=== PATIENT | male | born 1940 | race Caucasian/White ===

== ENCOUNTER 2023-04-15 06:13 | Day surgery (SDC) | payer MEDICARE, SELFPAY ==
[2023-04-14 08:37] VITALS: BMI 26.5
[2023-04-15] VITALS (12 sets, daily range): BP systolic 105–150; BP diastolic 69–84; PULSE 49–68; RESP 14–18; TEMP 36.1–37; O2SAT 93–99; BMI 26.6
--- NOTE | 2023-04-15 | PATH_ITS ---
[facility] Accession Number: [id number] No. of containers..01 Tissue . 01 Material submitted: . femur - RIGHT FEMUR SCLEROTIC TISSUE . 01 Diagnosis: BONE, RIGHT FEMUR, BIOPSY: Fragments of bony trabeculae with marrow elements, fibroadipose tissue, and sclerosed vascular tissue. Negative for malignancy. MRV 04/17/2023 1725 Local . 01 Electronically signed: . Celestina Landon MD, Pathologist NPI- [id number] . 01 Gross description: . The specimen is received in formalin labeled with the patient's name, , and right femur sclerotic tissue, consists of multiple fragments of cabrera-brown trabecular osseous tissue and blood clots aggregating to 2.6 x 2.0 x 0.4 cm. The tissue is entirely submitted in cassette A1 following decalcification in Immunocal. ([id number]) /MRV 04/16/2023 1220 Local . 01 Pathologist provided ICD-10: M16.11 . 01 CPT . 076358 Specimen Comment: A courtesy copy of this report has been sent to [phone] Performed at: 01 [facility] [address] [place] [address] [address], [place], [place] [id number] MD Geremias Meadows MD Phone: [phone]
--- NOTE | 2023-04-15 06:00 | DI.RAD.S_ITS ---
PROCEDURE: XR HIP W PEL IF DONE RT 2V INDICATIONS: JOSE TECHNIQUE: 4 intraoperative fluoroscopic images COMPARISON: None. FINDINGS: Four intraoperative fluoroscopic images demonstrate right total hip arthroplasty. Please see operative report for details. IMPRESSION: Four intraoperative fluoroscopic images demonstrate right total hip arthroplasty. Please see operative report for details. Dictated by: Samantha Vicente M.D. on 04/15/2023 at 18:19 Approved by: Samantha Vicente M.D. on 04/15/2023 at 18:20
[2023-04-15] MEDS: VANCOMYCIN 1,000 MG/200 ML PIGGYBACK 200 MG IV (06:49)
[2023-04-15] MEDS: ACETAMINOPHEN 325 MG TABLET 975 MG PO (07:07)
[2023-04-15] MEDS: LACTATED RINGERS 1,000 ML 42 ML IV ×2 (07:07→10:31)
[2023-04-15] MEDS: CELECOXIB 200 MG CAPSULE PO (07:07)
[2023-04-15] MEDS: PREGABALIN 75 MG CAPSULE PO (07:07)
[2023-04-15] MEDS: ONDANSETRON 4 MG/2 ML INJ IV (07:11)
[2023-04-15] MEDS: FAMOTIDINE 20 MG/2 ML VIAL IV (07:11)
--- NOTE | 2023-04-15 07:31 | P.OP_ITS ---
Operative Date/Time/Diagnoses Date of procedure: 04/15/23 Time of procedure: 07:55 Pre-op diagnosis: right hip OA, right hip sclerotic lesion Post-op diagnosis: same Procedure & Clinicians Procedure: Right total hip arthroplasty anterior approach, right femoral intramedullary open bone biopsy Same procedure as scheduled: Yes Indications: The patient has had progressively worsening right hip pain with radiographic changes consistent with arthritis. Non-operative management has failed and the patient has requested total hip replacement. He has a sclerotic lesion noted in his right proximal femur in the intramedullary canal that will be biopsied at the time of surgery. Clinically and radiographically it has a fairly benign appearance. The risks, benefits and alternatives to surgery were discussed with the patient prior to proceeding. Risks discussed included, but were not limited to, failure to relieve pain, leg length discrepancy, dislocation, stiffness, infection, nerve damage, deep venous thrombosis, pulmonary embolism, stroke, coma, heart attack, permanent paralysis and , as well as the potential need for eventual revision of the prosthetic. Surgeon: Kady Whitten Admissions Officer: Christophe Tse Anesthesia Type: General and Spinal Operative Notes Findings: Severe right hip OA, adequate stability, fairly soft bony intramedullary canal components suggestive of benign tissue Closure Type: primary Specimen(s): none sent Prosthetic devices, grafts, tissues, transplants, or devices: Whitten and nephew size 62 R3 cup, neutral poly liner, size 6 polar lateral stem with collar, 40 x +0 cobalt chrome head,one 6.5 mm screw. Blood products transfused: none Procedure in detail: The patient was brought to the operating room. Patient was carefully positioned in the supine position. Time-out was performed and antibiotics were given. Anesthesia was induced. He was positioned in the on the table in order to allow hyperextension of the hip. The right lower extremity was prepped and draped in a standard sterile fashion. An anterior right hip incision was made 1 fingerbreadth lateral to the anterior superior iliac spine and extended distally towards the greater trochanter. Dissection was carried out through skin and subcutaneous tissues. Superficial hemostasis was achieved. The fascia over the tensor fascia sunil was defined and incised with a knife. Two Allis clamps were used to grasp the fascia. Tensor fascia sunil was retracted laterally. A gelpi retractor was placed. Dissection was carried out down along the neck. The circumflex vessels were carefully identified and cauterized with the Aqua Mantis. A PA was used during the procedure was essential for intraoperative retraction and safe implantation of the components. There was good visualization of the femoral neck. A Cobra was placed superior to the neck and the gluteus fibers were carefully stripped from that superior aspect of the capsule. A 2nd retractor was placed along the inferior aspect of the neck. The rectus insertion along the capsule was partially released. A 3rd retractor that was then gently placed over the rim of the acetabulum under the rectus. Capsule was carefully incised and released from the intertrochanteric line circumferentially superior to the mid sagittal line and inferiorly to the mid sagittal line until the lesser trochanter was palpable. A tag stitch was placed both in the superior and inferior limb of the capsular insertion. Along the acetabulum capsule was also released up to the mid sagittal 12:00 position. A portion of the labrum was resected. A saw was used to perform an osteotomy at the level of the intertrochanteric line and the junction of the superior femoral neck leaving approximately 1 finger breath of residual inferior neck above the lesser trochanter. A 2nd cut was made along the femoral neck at the base of the head and a napkin ring of neck was removed. Corkscrew was placed in the femoral head and the head was removed without difficulty. Retractors were then repositioned around the acetabulum. Residual labrum was resected and additional osteophytes were removed. A reamer that was 4 mm below the templated size was placed by hand in the acetabulum and it was reamed to centralize the acetabulum. It was then reamed up to 2 under the templated size and fluoroscopy was brought in to confirm the position of the reaming and depth of reaming. I reamed 1 under the anticipated size. A trial cup was placed and noted that it was appropriately sized and fluoroscopy confirmed position and depth. The component was open and inserted without difficulty fluoroscopic imaging was used to confirm that the cup had been adequately seated and was well positioned. It was further stabilized with a single screw. Neutral poly liner was placed. The cup was tested and noted to be stable. Attention was then directed to the femur. The femur was gently hyperextended additional capsular release was performed as needed in order to allow adequate visualization of the proximal femur with elevation of the femur. Patient was placed in a hyperextended slightly adducted position with maximum external rotation. Box osteotome was used to check for any residual neck as well as sclerotic bone along the trochanter. The fluoro was then brought in in preparation for a deep bone biopsy. A Cloward rongeur was used to reach down into the intramedullary region of the canal and remove a specimen. Fluoro confirmed that we are in the region of interest where there was a sclerotic lesion on his femur. I also used a revision osteotomes back lift manager to scrape additional bone and it was sent for pathology. Anderson pepper was placed in the femur. Additional broaching was performed. Canal finder was used to determine the alignment of the canal and position. Size 1 broach was placed. The canal was then appropriately broached up to the templated size as long as there was adequate stability of the broach and serial advancement of the broach without excessive impingement. Specific attention was directed at avoiding varus attempting to direct the distal aspect of the broach more anteriorly and avoiding excessive anteversion. Trial reduction showed acceptable range of mot ion, good stability, no posterior impingement, jehovah's witness of leg length and appropriate lateral shuck. I also hyperflexed the hip and checked that there was no impingement anteriorly and there was good stability with flexion, adduction and internal rotation. Marcaine and Exparel were injected. The stem was placed without difficulty. Repeat trial reduction and x-ray showed acceptable overall position, length, and no evidence of the femoral fracture. Final head was placed. Wound was meticulously irrigated with normal saline. The hip was reduced and additional Exparel and Marcaine were injected. The capsule was closed with interrupted nonabsorbable sutures. The fascia of the tensor was closed with interrupted and running Vicryl. No drain was placed. Any tensor fascia sunil muscle that appeared to be contused or injured which was a minimal amount was carefully resected. Capsule around the tensor was injected with Exparel and Marcaine. The skin was closed with barbed stitches for the subcutaneous tissue and skin. We also used surgical glue. The wound was dressed sterilely. Brief Betadine soak was also used and was meticulously irrigated with normal saline. Patient was transferred to recovery room in satisfactory condition. Complications: none Post-operative Condition: stable Disposition: Acute Care Plan for aftercare: The patient will be maintained on a standard total hip replacement protocol with weight bearing as tolerated and anterior hip precautions. The patient will receive Aspirin and sequential compression devices for DVT prophylaxis. The patient will be discharged home when safe for the home environment.
--- NOTE | 2023-04-15 07:32 | PM.PREOP ---
Pre-operative Note Interval Note History & Physical reviewed/Exam performed by Physician: Yes Changes to H&P: No
[2023-04-15] MEDS: CEFAZOLIN 2 GM/100 ML PREMIX 100 ML IV ×2 (07:50→17:17)
--- NOTE | 2023-04-15 08:26 | SUR.OPER ---
Supine on padded [place] table with bilateral legs secured in padded positioning boots and suspended in positioning spars, operative leg in traction per surgeon. Head on one pillow. Arm on non-operative side secured on padded armboard <90 degrees abduction. Arm on operative side padded and resting across chest then secured with tape over sheet. Padded perineal post in place per surgeon.
[2023-04-15] MEDS: BUPIVACAINE LIPOSOME 266 MG/20 ML VIAL INJ (08:32)
[2023-04-15] MEDS: TRANEXAMIC ACID 1,000 MG VIAL 1000 MG INJ (08:32)
[2023-04-15] MEDS: BUPIVACAINE 0.25% (PF) 60 ML, EPINEPHrine 0.3 MG INJ (08:33)
--- NOTE | 2023-04-15 11:00 | DI.RAD.S_ITS ---
PROCEDURE: XR HIP W PEL IF DONE RT 2V INDICATIONS: POST OP ANTERIOR HIP TECHNIQUE: AP pelvis and lateral view of the hip acquired. 3 images. COMPARISON: [facility], [facility], XR HIP W PEL IF DONE RT 2V, 04/15/2023, 9:06. FINDINGS: Bones: Patient is status post right hip arthroplasty, with hardware components in expected positions. The hip joint appears congruent. The visualized bony structures appear intact. Soft tissues: Overlying postoperative changes are noted. No suspicious soft tissue densities. IMPRESSION: Expected appearance of the right total hip arthroplasty. Dictated by: Angel Geller M.D. on 04/15/2023 at 12:32 Approved by: Angel Geller M.D. on 04/15/2023 at 12:33
--- NOTE | 2023-04-15 11:59 | PC.NURSE ---
Addendum entered by Jeannette Salazar R.N. 04/15/23 13:48: Patient had some ibuprofen and tylenol, he is comfortable and visiting with his . Original Note: Patient to room at 1105, he has an aquacel dressing to his r.upper anterior hip, cdi. He denies pain and had local with experel. Patient received 100mcg of fentanyl, 2 versed, 4 zofran and 10mg of decadron. He is resting comfortably now.
[2023-04-15] MEDS: IBUPROFEN 400 MG TABLET PO ×2 (12:53→18:43)
[2023-04-15] MEDS: ACETAMINOPHEN 325 MG TABLET 650 MG PO ×2 (12:54→18:45)
--- NOTE | 2023-04-15 14:35 | PT.IIE ---
Current Diagnoses Unilateral primary osteoarthritis, right hip (04/15/23) Surgery Performed Operation Date: 04/15/23 07:45 Actual Procedures p Total Hip Arthroplasty Anterior(Right) - Kady Whitten MD Surgical History (Last Updated 03/31/23 @ 10:14 by Fior Salgado, RN) History of urologic surgery Hx of bilateral cataract extraction Hx of lithotripsy Hx of tonsillectomy Medical History (Last Updated 03/31/23 @ 10:14 by Fior Salgado RN) Easy bruisability Exercise-induced asthma GERD (gastroesophageal reflux disease) HTN (hypertension) Kidney stones Osteoarthritis Physical Therapy Inpatient Evaluation/Re-Eval M1 PT/OT-IP Prior Functional Status Start: 04/15/23 16:34 Freq: NEEDED Status: Active Protocol: Document 04/15/23 14:35 AB (Rec: 04/15/23 16:45 AB [id number]) Medical Review Prior Functional Status Medical History Reviewed Yes Communication able to make needs known Mobility and Gait pt stated that he was independent with all mobilities and ambulation wihtout AD Social History Household Members spouse Living Arrangements House Number of Floors (Floors) One Floor Number of Stairs To Enter/Railing? 2 steps R rail ascending to enter the house Home Environment Standard Height Toilet,Tub/ Shower,Built-In Shower Seat Home Equipment Front Wheel Walker,Straight Cane,Hand Held Shower,Grab Bars In Shower Additional Social History Comment pt has a toilet safety frame M2 PT-IP Current Condition Start: 04/15/23 16:34 Freq: NEEDED Status: Active Protocol: Document 04/15/23 14:35 AB (Rec: 04/15/23 16:45 AB [id number]) Physical Therapy Current Condition Current Condition Evaluation Date 04/15/23 Treatment Diagnosis s/p R JOSE anterior; difficulty in walking Onset Date 04/15/23 M3 PT-IP Subjective Start: 04/15/23 16:34 Freq: NEEDED Status: Active Protocol: Document 04/15/23 14:35 AB (Rec: 04/15/23 16:45 AB [id number]) Subjective Physical Therapy Visit Type Type Initial Evaluation Visit Start Time 14:35 Visit Stop Time 15:40 Number of PRICING LEAD Visits 65 Physical Therapy Visit Comments Patient Comments agreeable to do PT Therapy Pain Assessment Pain When Pain Assessed At Rest Pain Present Pain Present Pain Reported Location Right Hip Intensity 5 Pain Management Techniques Apply Cold,Distraction, Modification of Treatment,Re- positioning,Timing of Activity with Medications M4 PT-IP Mobility and Gait Start: 04/15/23 16:34 Freq: NEEDED Status: Active Protocol: Document 04/15/23 14:35 AB (Rec: 04/15/23 16:45 AB [id number]) PT-Bed Mobility Assessment Supine to Sit Supine to Sit Standby Assistance PT-Transfer Assessment Sit to and From Stand Sit to and from Stand Minimal Assistance,1 Person Assistance,Use of Upper Extremities Equipment Transfer Assistive Device Gait Belt,Front Wheeled Walker Orthotic/Prosthetic Devices or Brace: No Transfers Transfer Destination Toilet Transfer Technique ambulated Transfer Ability Level of Assist Minimal Assistance,1 Person Assistance,Use of Upper Extremities Comments Mobility Comments pt supine in bed and agreeable to do PT. obtained PLOF and home set up from pt. educated pt regarding anterior hip precautions and pt unable to recall after education. post- op folder provided to pt and reviewed contents. BP in supine: 125/73 O2 sat 97-98%. pt requested to use the toilet. pt completed supine to sit SBA . able to sit on EOB SBA. no c /o dizziness pt completed sit to stand min A and ambulated to the toilet using FWW min A. CGA for standing balance using fWW support while using the toilet. pt requires cues for hip precautions. pt ambulated out from the toilet to the chair using FWW min A and cues. reviewed hip precautions again and pt unable to recall. pt stated that his brain feels fuzzy. positioned pt on the chair. call light and table placed within reach. set up caregiver training. pt consented for PT to call spouse to arrange carergiver training. spouse will come in at 9 am tomorrow for caregiver training. Gait Assessment Gait Gait Assistance Required: Minimum Assistance,1 Person Assist Distance (Feet) 20 Able to Maintain Weight Bearing Status Yes During Gait Assistive Devices Assistive Device Gait Belt,Front Wheeled Walker Orthotic/Prosthetic Devices or Brace: No Gait Deviations General Gait Pattern Decreased Feet Clearance Factors Limiting Gait Function Factors Limiting Gait Function Decreased Activity Tolerance, Decreased Strength,Difficulty Following Directions,Pain,Poor Balance,Poor Safety Awareness PT-Balance Assessment Sitting Balance and Reactions Static Sitting Balance Ability Good Dynamic Sitting Balance Ability Good Standing Balance and Reactions Static Standing Balance Ability Fair Dynamic Standing Balance Ability Fair Device Used FWW M5 PT-IP Objective Assessments Start: 04/15/23 16:34 Freq: NEEDED Status: Active Protocol: Document 04/15/23 14:35 AB (Rec: 04/15/23 16:45 AB [id number]) Orientation Orientation/Cognition Level of Alertness Alert Orientation Name,Situation Safety Awareness Decreased Safety Awareness Memory Description Short Term Impaired Gross Range of Motion Lower Extremity ROM Assessment Within Functional Limits Strength Lower Extremity Strength Assessment Right Impaired Hip 3-/5 Knee 3+/5 Coordination Assessment Gross Coordination Gross Coordination WNL Sensation Assessment Sensation Gross Sensation WNL Muscle Tone Muscle Tone WNL Yes M6 PT-IP Treatment Start: 04/15/23 16:34 Freq: NEEDED Status: Active Protocol: Document 04/15/23 14:35 AB (Rec: 04/15/23 16:45 AB [id number]) Physical Therapy Treatment Education Education Provided Precautions,Weight Bearing Status,Post-Op Packet,Safety M7 PT-IP Assessment and Plan Start: 04/15/23 16:34 Freq: NEEDED Status: Active Protocol: Document 04/15/23 14:35 AB (Rec: 04/15/23 16:45 AB [id number]) PT Summary Assessment and Plan Potential Rehabilitation Potential Fair Status of Condition at Evaluation Evolving Summary Impairments Pain,ROM,Strength,Balance, Coordination,Sensation,Tone, Cognition,Bed Mobility, Transfers,Gait,Activity Tolerance Assessment Summary pt is an 82 y/o M s/p R JOSE anterior approach POD 0. pt has R anterior hip precautions and is WBAT. pt requiring min A with mobility but needs max cues for hip precautions. caregiver training set up for tomorrow at 9 am. will continue to assess progress. pt stated that he has outpt PT scheduled. Goals Bed Mobility Goal Independent Transfer Goal Independent,Front Wheeled Walker Gait Goal Independent,Front Wheel Walker Gait Distance 250 Other Goals up/down 2 steps R rail ascending SBA Days to Meet Goals 5 Frequency of Treatment Frequency Of Treatment Twice a Day Treatment Plan Physical Therapy Treatment Plan Bed Mobility Training,Transfer Training,Gait Training, Therapeutic Exercise,Balance Retraining,Post Op Education, Discharge Planning,Hot or Cold Pack,Neuromuscular Re-ed, Coordination Retraining,Manual Therapy Precautions Anterior Hip Precautions No Hip Extension,No Hip External Rotation Weight Bearing Status Weight Bearing Status Weight Bear as Tolerated Allowed Weight Bearing Amount (enter % RLE WBAT or #) (%) Recommendations To Nursing Amount of Assist Needed 1 Person Assist Discharge Recommendations PT Discharge Recommendations Home with Assistance, Outpatient PT Transportation Needs at Discharge Private Vehicle
--- NOTE | 2023-04-15 18:58 | PC.NURSE ---
Assess- Patient had a fall as he was reaching for his urinal, he states that he broke his fall and went down on his knee. This happened at 1450, patient checked on by nuisance animal damage control agent at 1700 and this RN at 1710 and patient was up by himself with walker, trying to void. He was told to use his call nichols and it was in reach. Kady Whitten is aware of this and a post fall paper work and QMM filled out. He is doing well, sitting up in chair and ate well at breakfast.
[2023-04-15] MEDS: ASPIRIN EC 81 MG TABLET PO (21:47)
[2023-04-15] MEDS: DOCUSATE 100 MG CAPSULE PO (21:47)
[2023-04-15] MEDS: VIT C/E/ZN/COPPR/LUTEIN/ZEAXAN CAPSULE 1 CAP PO (21:47)
[2023-04-16] VITALS: BP 113/60; PULSE 61; RESP 18; TEMP 35.9; O2SAT 97
[2023-04-16] MEDS: CEFAZOLIN 2 GM/100 ML PREMIX 100 ML IV (00:18)
[2023-04-16] MEDS: IBUPROFEN 400 MG TABLET PO ×3 (00:18→08:44)
[2023-04-16] MEDS: ACETAMINOPHEN 325 MG TABLET 650 MG PO ×2 (00:41→06:32)
--- NOTE | 2023-04-16 03:12 | PC.NURSE ---
Nightshift patient told RN when using restroom, that he has been feeling confused that he feels like he might be in [place], [place] or other places but he knows he is in [facility]. Denies any pain, shortness of breath, N/V. RN offered Ice Packs or pain medication but Patient refused.
[2023-04-16 05:38] LABS: Hematocrit 37.7 % (41-53)
[2023-04-16] MEDS: PANTOPRAZOLE DR 40 MG TABLET PO (06:32)
[2023-04-16] MEDS: allopurinoL 100 MG TABLET 300 MG PO (08:44)
[2023-04-16] MEDS: VIT C/E/ZN/COPPR/LUTEIN/ZEAXAN CAPSULE 1 CAP PO (08:44)
[2023-04-16] MEDS: ASPIRIN EC 81 MG TABLET PO (08:45)
[2023-04-16] MEDS: TAMSULOSIN 0.4 MG CAPSULE PO (08:46)
[2023-04-16] MEDS: DOCUSATE 100 MG CAPSULE PO (08:46)
--- NOTE | 2023-04-16 08:52 | PT.IPTN ---
Current Diagnoses Unilateral primary osteoarthritis, right hip (04/15/23) Surgery Performed Operation Date: 04/15/23 07:45 Actual Procedures p Total Hip Arthroplasty Anterior(Right) - Kady Whitten MD Physical Therapy Treatment Note M2 PT-IP Current Condition Start: 04/15/23 16:34 Freq: NEEDED Status: Active Protocol: Document 04/15/23 14:35 AB (Rec: 04/15/23 16:45 AB [id number]) Physical Therapy Current Condition Current Condition Evaluation Date 04/15/23 Treatment Diagnosis s/p R JOSE anterior; difficulty in walking Onset Date 04/15/23 M3 PT-IP Subjective Start: 04/15/23 16:34 Freq: NEEDED Status: Active Protocol: Document 04/16/23 09:15 TS (Rec: 04/16/23 09:29 TS [id number]) Subjective Physical Therapy Visit Type Type Treatment Note Visit Start Time 08:52 Visit Stop Time 09:15 Notes Family present Number of FISH PROTECTOR Visits 1 Physical Therapy Visit Comments Patient Comments Pt found resting in chair, reports feeling better but has some tightness in R upper thigh. Pt states he fell during the night trying to reach for a urinal. Pt is agreeable to PT. Therapy Pain Assessment Pain When Pain Assessed At Rest Pain Present Pain Present Pain Reported M4 PT-IP Mobility and Gait Start: 04/15/23 16:34 Freq: NEEDED Status: Active Protocol: Document 04/16/23 09:15 TS (Rec: 04/16/23 09:29 TS [id number]) PT-Transfer Assessment Sit to and From Stand Sit to and from Stand Standby Assistance,Use of Upper Extremities Equipment Transfer Assistive Device Gait Belt,Front Wheeled Walker Orthotic/Prosthetic Devices or Brace: No Comments Mobility Comments Pt recalled 2/2 hip precautions prior to mobility. STS from chair SBA with use of FWW and BUE support pshin from arms of chair. He ambulated in hallway ~250'SBa with step to gait, pt demonstrated good awareness of leading with RLE. He performed steps x6 with single rail and cues for step sequencing CGA, pt had no LOB or buckling. pt ambulated back to room, educated on intensity and frequency of post-ex. Was left in chair with OT and family in room. Gait Assessment Gait Gait Assistance Required: Standby Assistance Distance (Feet) 250 Able to Maintain Weight Bearing Status Yes During Gait Assistive Devices Assistive Device Gait Belt,Front Wheeled Walker Orthotic/Prosthetic Devices or Brace: No Gait Deviations General Gait Pattern Decreased Feet Clearance,Step- to Gait Factors Limiting Gait Function Factors Limiting Gait Function Decreased Activity Tolerance, Decreased Strength,Difficulty Following Directions,Pain,Poor Balance,Poor Safety Awareness Comments Gait Comments See mobility comments Stair Climbing Assessment Evaluation Level of Assist On Stairs Contact Guard Assistance,1 Person Assistance Devices Stair Climbing Assistive Devices Right Railing Technique/Endurance Stair Climbing Direction Ascend and Descend Stair Climbing Technique Step to Step Number of Steps Climbed 6 Comments Stair Climbing Comments See mobility comments PT-Balance Assessment Sitting Balance and Reactions Static Sitting Balance Ability Good Dynamic Sitting Balance Ability Good Standing Balance and Reactions Static Standing Balance Ability Good Dynamic Standing Balance Ability Fair Device Used FWW M5 PT-IP Objective Assessments Start: 04/15/23 16:34 Freq: NEEDED Status: Active Protocol: Document 04/15/23 14:35 AB (Rec: 04/15/23 16:45 AB [id number]) Orientation Orientation/Cognition Level of Alertness Alert Orientation Name,Situation Safety Awareness Decreased Safety Awareness Memory Description Short Term Impaired Gross Range of Motion Lower Extremity ROM Assessment Within Functional Limits Strength Lower Extremity Strength Assessment Right Impaired Hip 3-/5 Knee 3+/5 Coordination Assessment Gross Coordination Gross Coordination WNL Sensation Assessment Sensation Gross Sensation WNL Muscle Tone Muscle Tone WNL Yes M6 PT-IP Treatment Start: 04/15/23 16:34 Freq: NEEDED Status: Active Protocol: Document 04/16/23 09:15 TS (Rec: 04/16/23 09:29 TS [id number]) Physical Therapy Treatment Education Education Provided Precautions,Weight Bearing Status,Post-Op Packet,Safety M7 PT-IP Assessment and Plan Start: 04/15/23 16:34 Freq: NEEDED Status: Active Protocol: Document 04/16/23 09:15 TS (Rec: 04/16/23 09:29 TS [id number]) PT Summary Assessment and Plan Potential Rehabilitation Potential Fair Summary Impairments Pain,ROM,Strength,Balance, Coordination,Sensation,Tone, Cognition,Bed Mobility, Transfers,Gait,Activity Tolerance Progress Towards Goals Progressing Toward Goals Assessment Summary Sarmad is making good progress with his mobility. He progressed his STS to SBA with use of FWW. He progressed his gait to ~250'SBA with use of FWW with a step to gait. He performed stairs x6 CGA with single rail, had no buckling or LOB. PT is recommending pt return home with spouse/family and outpatient PT. Goals Bed Mobility Goal Independent Transfer Goal Independent,Front Wheeled Walker Gait Goal Independent,Front Wheel Walker Gait Distance 250 Other Goals up/down 2 steps R rail ascending SBA Days to Meet Goals 5 Frequency of Treatment Frequency Of Treatment Twice a Day Treatment Plan Physical Therapy Treatment Plan Bed Mobility Training,Transfer Training,Gait Training, Therapeutic Exercise,Balance Retraining,Post Op Education, Discharge Planning,Hot or Cold Pack,Neuromuscular Re-ed, Coordination Retraining,Manual Therapy Precautions Anterior Hip Precautions No Hip Extension,No Hip External Rotation Weight Bearing Status Weight Bearing Status Weight Bear as Tolerated Allowed Weight Bearing Amount (enter % RLE WBAT or #) (%) Recommendations To Nursing Amount of Assist Needed Standby Assistance Discharge Recommendations PT Discharge Recommendations Home with Assistance, Outpatient PT Transportation Needs at Discharge Private Vehicle
--- NOTE | 2023-04-16 09:02 | PM.DS.1 ---
History of Present Illness History of Present Illness Chief complaint: Right Total Hip Arthroplasty/Anterior Narrative: Sarmad is a pleasant 82-year-old male who is postop day 1 status post right total hip arthroplasty by Dr. Whitten. He reports overall he is doing well, pain has been mild and well-controlled with Tylenol and ibuprofen alone has not taken any oxycodone since surgery. Admits he did sustain a fall yesterday while he was bending over to pick something up from the floor from bed. He reports he fell onto his knee and was able to get himself back up to the bed on his own no significant increase in pain since the fall. Has been urinating well since surgery. He has outpatient PT appointments set up with [facility], has also been working on exercises in bed while being in the hospital. Has not not seen PT yet today. Would like to discharge home to his today. States he has a walker at home, only 2 steps up to his house and his will be home with him to aid in his immediate postop recovery. Denies fever, chills, shortness of breath, chest pain, nausea, vomiting. Operative Date/Time/Diagnoses Date of procedure: 04/15/23 Time of procedure: 07:55 Pre-op diagnosis: right hip OA, right hip sclerotic lesion Post-op diagnosis: same Procedure & Clinicians Procedure: Right total hip arthroplasty anterior approach, right femoral intramedullary open bone biopsy Same procedure as scheduled: Yes Indications: The patient has had progressively worsening right hip pain with radiographic changes consistent with arthritis. Non-operative management has failed and the patient has requested total hip replacement. He has a sclerotic lesion noted in his right proximal femur in the intramedullary canal that will be biopsied at the time of surgery. Clinically and radiographically it has a fairly benign appearance. The risks, benefits and alternatives to surgery were discussed with the patient prior to proceeding. Risks discussed included, but were not limited to, failure to relieve pain, leg length discrepancy, dislocation, stiffness, infection, nerve damage, deep venous thrombosis, pulmonary embolism, stroke, coma, heart attack, permanent paralysis and , as well as the potential need for eventual revision of the prosthetic. Surgeon: Kady Whitten Sander Wooden Pencils: Christophe Tse Anesthesia Type: General and Spinal Discharge Providers Provider Discharge Date: 04/16/23 Primary care physician: Marco Antonio Perez MD Consults: 04/14/23 08:53 Consult to Anesthesiology Routine Comment: Consulting Provider: Anesthesiologist Reason for consultation: Surgeon requested re: Abnormal EKG 04/15/23 06:00 Consult to Anesthesiology Routine Comment: Consulting Provider: Anesthesiologist Reason for consultation: Regional block for post operative pain control 04/15/23 11:44 Consult to Discharge Planning Routine Comment: Consult to Occupational Therapy Evaluate & Treat Comment: Physician Instructions: Evaluate and treat Consult to Physical Therapy Evaluate & Treat Comment: Physician Instructions: post op JOSE protocol Discharge provider: Grecia Santana PA-C Summary Hospital Course Discharge Diagnosis: Right hip osteoarthritis status post right total hip arthroplasty. Stable Hospital Course: Uncomplicated hospital course. Exam Vital Signs (past 8 hours): Oxygen Delivery Method Room Air Oxygen Flow Rate 0 Narrative Exam Narrative: Patient is sitting comfortably in bedside chair today during interview. Const General: cooperative, healthy appearing and comfortable Resp Effort & Inspection: normal respiratory effort and able to speak in complete sentences Cardio Other: Regular rate. Brisk capillary refill. Extremities appear well perfused Skin Other: Clean and dry Aquacel dressing over the right anterior hip. Mild bruising lateral to the incision site. No rash or lesion. Neuro General: patient alert, patient awake and patient oriented x3 Extrem Other: Calf soft and nontender bilaterally 5/5 strength with df, PF, EHL, knee flexion, knee extension. Sensation intact throughout the lower extremity. Psych Appearance: grossly normal Mental Status: mental status grossly normal Speech and Movement: speech and movement normal Objective Labs 04/16/23 05:28 Labs: Laboratory Results - last 24 hr 04/16/23 05:28 Hgb 13.0 L Hct 37.7 L PFSH Medical History (Updated 03/31/23 @ 10:14 by Fior Salgado RN) Easy bruisability Kidney stones Exercise-induced asthma HTN (hypertension) GERD (gastroesophageal reflux disease) Osteoarthritis Surgical History (Updated 03/31/23 @ 10:14 by Fior Salgado RN) Hx of tonsillectomy History of urologic surgery Hx of lithotripsy Hx of bilateral cataract extraction Social History household members: spouse Smoking Status: Former smoker alcohol intake: current Discharge Assessment & Plan Assessment and Plan Assessment: Stable status post right total hip arthroplasty, anterior approach. Plan of Treatment: Okay to d/c to home today pending PT evaluation. Weightbearing as tolerated, maintain anterior hip precautions. Continue to work on mobility with outpatient PT. Continue multimodal pain control. Ice to the hip. Has post-op meds at home already. Continue ASA b.i.d. for DVT prophylaxis. Keep dressing intact until 2 week postop appointment. Keep dressing clean and dry, no soaking the incision site and pulls her toes. Follow-up at [facility] in 2 weeks Discharge Plan Discharge Plan Patient Disposition: Home Provider Discharge Comment: Follow up with [facility] in 2 weeks Discharge orders & Medications Discharge Orders: Discharge (Order); Ordered 04/16/23 Ordered By: Grecia Santana Prescriptions: New acetaminophen 325 mg Tablet 650 mg PO Q6H Qty: 120 0RF aspirin 81 mg Tablet,Delayed Release (Dr/Ec) 81 mg PO BID Qty: 90 0RF ibuprofen 400 mg Tablet 400 mg PO Q4H Qty: 60 0RF docusate sodium 100 mg Capsule 100 mg PO BID Qty: 30 0RF ondansetron 4 mg Tablet,Disintegrating 4 mg PO Q4HR PRN (Reason: Nausea) Qty: 30 0RF oxycodone 5 mg Tablet 5 mg PO Q4-6H PRN (Reason: Pain, Moderate (4-6)) Qty: 30 0RF Continued omeprazole 40 mg Capsule,Delayed Release(Dr/Ec) 40 mg PO DAILY acetaminophen 650 mg Tablet Extended Release 1,300 mg PO Q12H PRN (Reason: Pain) allopurinol 300 mg Tablet 300 mg PO DAILY lisinopril 5 mg Tablet 5 mg PO DAILY PreserVision AREDS-2 250-90-40-1 mg Capsule 1 tab PO BID tamsulosin 0.4 mg capsule 0.4 mg PO DAILY Medication counseling provided by Pharmacist: Yes Follow up/Referrals: Christophe Tse PA-C [Advanced Yarding Supervisor] - 04/25/23 2:30 pm (appt:04/24 @ 2:30 with gabriel szymanski @ [facility] ) Marco Antonio Perez MD [Primary Care Provider] - Diet/Activity/Treatments Diet: Diet as Tolerated Activity: Weight-bearing as tolerated, anterior hip precautions Cold/Heat Therapy: Ice to the hip for additional pain control Skin/Wound/Dressing Care Report to your healthcare provider any signs of infection, such as:: chills, fever, night sweats, unusual drainage and unusual redness Dressing: Keep dressing clean, dry, intact until 2 week postop appointment. No soaking the incision in pools or tubs. No topical ointments or creams to the incision site. If dressing becomes saturated or dirty okay to remove and replace with clean and dry gauze we returned to our office for replacement dressing. Visit Report/Discharge Packet Instructions: DI for Hip Replacement, DI for Constipation, How to Prevent Falls, DI for Prescription Opioid Use, How to Monitor Your Blood Pressure at Home Stand Alone Forms: Patient Portal/API Discharge Data Primary Care Provider: Marco Antonio Perez Attending Provider: Kady Whitten
--- NOTE | 2023-04-16 09:28 | OT.IP.EVAL ---
Current Diagnoses Unilateral primary osteoarthritis, right hip (04/15/23) Surgery Performed Operation Date: 04/15/23 07:45 Actual Procedures p Total Hip Arthroplasty Anterior(Right) - Kady Whitten MD Past Medical History (Last Updated 03/31/23 @ 10:14 by Fior Salgado, RN) Easy bruisability Exercise-induced asthma GERD (gastroesophageal reflux disease) HTN (hypertension) Kidney stones Osteoarthritis Surgical History (Last Updated 03/31/23 @ 10:14 by Fior Salgado RN) History of urologic surgery Hx of bilateral cataract extraction Hx of lithotripsy Hx of tonsillectomy Occupational Therapy Inpatient Evaluation/Re-Eval M1 PT/OT-IP Prior Functional Status Start: 04/16/23 10:22 Freq: NEEDED Status: Active Protocol: Document 04/16/23 09:05 [facility] (Rec: 04/16/23 10:31 [facility] [id number]) Medical Review Prior Functional Status Medical History Reviewed Yes Communication able to make needs known Mobility and Gait pt stated that he was independent with all mobilities and ambulation without AD Activities of Daily Living and IADL's ABle to do ADL and IADL needs but had pain. Social History Household Members spouse Living Arrangements House Number of Floors (Floors) One Floor Number of Stairs To Enter/Railing? 2 steps R rail ascending to enter the house Home Environment Standard Height Toilet,Tub/ Shower,Built-In Shower Seat Home Equipment Front Wheel Walker,Straight Cane,Case Management Coordinator,Sock Aid,Grab Bars In Shower Additional Social History Comment pt has a toilet safety frame M2 OT-IP Current Condition Start: 04/16/23 10:22 Freq: Status: Active Protocol: Document 04/16/23 09:05 [facility] (Rec: 04/16/23 10:31 [facility] [id number]) Occupational Therapy Current Condition Current Condition Evaluation Date 04/16/23 Treatment Diagnosis S/P R JOSE anterior Diagnosis Onset Date 04/15/23 Post Operative Precautions Anterior Hip Precautions No Hip Extension,No Hip External Rotation M3 OT- IP Subjective and Pain Start: 04/16/23 10:22 Freq: Status: Active Protocol: Document 04/16/23 09:05 [facility] (Rec: 04/16/23 10:31 [facility] [id number]) OT- Subjective Occupational Therapy Visit Type Type Initial Evaluation Visit Start Time 09:05 Visit Stop Time 09:28 Occupational Therapy Visit Comments Patient Comments Pt agreed to get dressed and do OT eval. Pt's in the room. Patient/Caregiver Goals To go home. OT Pain Assessment Pain When Pain Assessed During Mobility Pain Present Pain Present Pain Reported M4 OT- IP ADL's Start: 04/16/23 10:22 Freq: Status: Active Protocol: Document 04/16/23 09:05 [facility] (Rec: 04/16/23 10:31 [facility] [id number]) OT NVF-Acos-Ajnxrhm General Evaluation Self-Feeding Ability Independent OT ADL-Grooming General Evaluation Grooming Ability Independent OT ADL-Oral Care General Eval Oral Care Ability Independent OT ADL-Dressing General Eval Upper Body Dressing Ability Independent Lower Body Dressing Ability Minimal Assistance Comments OT Dressing Comments MATT to assist to get the heel of his shoe on. Able to review use of LB dressing equipment for pt . Pt able to comfortably reach forwards and able to follow his anterior precautions. Educated pt to mindful of his hip positioning during ADL need and not to externally rotate his leg out. OT ADL-Toileting Comments OT Toileting Comments Pt states has been doing. OT ADL-Bathing Comments OT Bathing Comments Pt will benefit from a shower chair and assist at this time. M5 OT- IP IADL's Start: 04/16/23 10:22 Freq: Status: Active Protocol: Document 04/16/23 09:05 [facility] (Rec: 04/16/23 10:31 [facility] [id number]) OT-Instrumental Activities of Daily Living Deficits IADL Deficits Identified Deficits Home Safety Awareness Awareness of Need for Assistance at Home Good Awareness Ability to Problem Solve Emergency Able to Problem Solve Situations Home Safety Comments Pt has supportive family to assist with his needs. M6 OT- IP Functional Cognition Start: 04/16/23 10:22 Freq: Status: Active Protocol: Document 04/16/23 09:05 [facility] (Rec: 04/16/23 10:31 [facility] [id number]) Cognitive Factors Limiting Selfcare Function Cognitive Ability Level of Alertness Alert Patient Orientation Name,Age,Birthday,Month,Date, Year,Day of Week,Place, Situation Attention Span Ability Capable of Focused Attention, Capable of Sustained Attention Ability to Follow Commands Able to Follow Multi-Step Commands Cognitive Comments Cognitive Assessment Comments Intact OT- Vision and Hearing OT- Hearing Assessment OT- Hearing Assessment WFL OT- Vision Assessment Visual Acuity Glasses All The Time M7 OT- IP Mobility and Balance Start: 04/16/23 10:22 Freq: Status: Active Protocol: Document 04/16/23 09:05 [facility] (Rec: 04/16/23 10:31 [facility] [id number]) OT-Transfer Assessment Sit to and From Stand Sit to and from Stand Standby Assistance Transfers Transfer Ability Standby Assistance Comments Mobility Comments SBA with FWW. OT- Balance Assessment Sitting Balance and Reactions Static Sitting Balance Ability Normal Dynamic Sitting Balance Ability Good Standing Balance and Reactions Static Standing Balance Ability Good Dynamic Standing Balance Ability Fair Able to go over car transfer and bed positioning needs with pt. M8 OT- IP Objective Assessments Start: 04/16/23 10:22 Freq: Status: Active Protocol: Document 04/16/23 09:05 [facility] (Rec: 04/16/23 10:31 [facility] [id number]) OT Strength Upper Extremity Strength Assessment Within Functional Limits M9 OT- IP Assessment and Plan Start: 04/16/23 10:22 Freq: Status: Active Protocol: Document 04/16/23 09:05 [facility] (Rec: 04/16/23 10:31 [facility] [id number]) OT Summary Assessment and Plan Potential Rehabilitation Potential Excellent Analytic Complexity at Evaluation Low Summary OT Impairments Pain,Balance,Functional Mobility,Dressing,Bathing Progress Towards Goals Progressing Toward Goals Assessment Summary Pt low complexity and main barriers are decreased dynamic balance, and will need assist for showering needs and beneficial to get a shower chair. Pt to go home with assist and go to outpt PT. Goals Dressing Goal Independent,Case Management Coordinator,Sock Aid Toileting Goal Independent Bathing Goal Standby Assistance Toilet Transfer Goal Independent Shower Transfer Goal Independent Days to Meet Goals 3 Frequency of Treatment Frequency Of Treatment Once a Day Treatment Plan OT Treatment Plan ADL Training,Functional Mobility,Patient/Family Education,Discharge Planning Discharge Recommendations OT Discharge Recommendations Home with Assistance, Outpatient PT Other Discharge Recommendations shower chair Transportation Needs at Discharge Private Vehicle
--- NOTE | 2023-04-16 11:23 | CM.DANOTE ---
Initial DCP Assessment Note Pt is an 82 yo male, resident of [place], now POD#1 from Rt total hip surgery by Dr Whitten PCP: Marco Antonio Perez Payer: MCR/JOSE Reviewed chart, pt discussed in multidisciplinary rounds this morning. Therapy has cleared pt for return home w/family to assist and pt has planned for home, DC order from Ortho has already been initiated this morning. No barriers identified at this time to patient's safe discharge home w/family to assist; close outpatient f/u recommended. CM team will plan to follow closely in case any DC needs or concerns arise. JORDANA Morris Discharge Planning/Care Management Advanced directive, confirm from FAMILY Start: 04/15/23 12:47 Freq: Q24H Status: Active Protocol: Document 04/15/23 19:55 MS (Rec: 04/15/23 22:02 MS [id number]) Advance Directive, confirm on record Time 19:55 Person contacted patient Copy received No CM Discharge Assessment Start: 04/16/23 11:21 Freq: Status: Active Protocol: Document 04/16/23 11:21 (Rec: 04/16/23 11:23 [id number]) Discharge Planning Assessment Assigned Communications Specialist JORDANA Collazo DPOA/Assigned Designee Name Sarah Arevalo, spouse Contact Information [phone] Advance Directives? Yes Advance Directives on File No History Provided By Patient,Significant Other, Medical Record Prior Living Arrangements House Household Members spouse Type of transporation used prior to Drives own vehicle admit Independent with ADL's Yes Is patient alert and oriented? Yes Patient/Family Preference OP PT Therapy Barriers to Discharge No Discharge Plan Home Transportation Arrangement Spouse Referrals Initiated None needed
--- NOTE | 2023-04-16 12:50 | PC.NURSE ---
Discharge: Pt feels ready to d/c to home. Is voiding w/out diff. No use of narcotic pain medication, he says he doesn't need it. BP sl decreased this am and lisinopril was held. Pt does have a bp cuff. He was given sheet for parameter for bp and how to tale same correctly. Takes diet w/out problems. Seen by Dr. Whitten this am and given d/c instructions. Seen by PA and given instructions. Cleared by PT/OT as safe to go home. Discussed wound care w/pt and spouse. He also has some redness around the inner upper thigh area and some edema, was told this is due to tourniquet. Reviewed d/c packet w/pt and spouse. Questions answered. Pt d/c to home via auto w/spouse.
== END 2023-04-16 11:30 | disposition home or self-care (01) ==
LOC: OR 06:16 → AC 09:11
PROVIDERS: PCP Family Medicine; Referring Provider Orthopaedic Surgery; Visit Provider Orthopaedic Surgery
PROC: (CPT 27130; principal; 2023-04-15 07:45)
DX: M16.11 Unilateral primary osteoarthritis, right hip (principal); M25.751 Osteophyte, right hip
CPT/HCPCS: 27130; 73502; 76000; 85014; 85018; 97116; 97162; 97165; 97530; 97535; C1776; C9290; J0171; J0690; J1100; J2250; J2405; J2704; J3010